=== PATIENT | male | born 1970 | race Caucasian/White ===

== ENCOUNTER 2019-11-27 13:15 | Day surgery (SDC) | payer BC, OTHER ==
[2019-11-22 14:42] LABS: BASOPHILS % (AUTO) 0.5 % (0-1); EOSINOPHILS # (AUTO) 0.6 X10'3 (0-0.9); EOSINOPHILS % (AUTO) 6.9 % (0-6); HEMATOCRIT 42.5 % (42.0-52.0); HEMOGLOBIN 14.6 g/dl (14.0-17.9); LYMPHOCYTES # (AUTO) 2.8 X10'3 (1.1-4.8); LYMPHOCYTES % (AUTO) 33.7 % (21-51); MEAN CORPUSCULAR HEMOGLOBIN 30.8 PG (27.0-31.0); MEAN CORPUSCULAR HGB CONC 34.4 g/dL (33.0-36.5); MEAN CORPUSCULAR VOLUME 89.6 FL (78-98); MEAN PLATELET VOLUME 7.2 FL (7.4-10.4); MONOCYTES # (AUTO) 0.6 X10'3 (0-0.9); MONOCYTES % (AUTO) 7.1 % (2-12); NEUTROPHILS # (AUTO) 4.3 X10'3 (1.8-7.7); NEUTROPHILS % (AUTO) 51.8 % (42-75); PLATELET COUNT 254 X10'3 (140-440); RED BLOOD COUNT 4.74 X10'6 (4.70-6.10); RED CELL DISTRIBUTION WIDTH 13.7 % (11.5-14.5); WHITE BLOOD COUNT 8.4 X10'3 (4.5-11.0)
[2019-11-22 14:50] LABS: PARTIAL THROMBOPLASTIN TIME 26 SECONDS (22-32)
[2019-11-22 14:52] LABS: ALBUMIN 3.9 G/DL (3.4-5.0); ANION GAP 7 (8-16); BLOOD UREA NITROGEN 12 MG/DL (7-18); BUN/CREATININE RATIO 12.8 (5.4-32.0); CALCIUM 9.4 MG/DL (8.5-10.1); CHLORIDE 104 MMOL/L (99-107); CREATININE 0.94 MG/DL (0.60-1.10); GLUCOSE 96 MG/DL (70-104); POTASSIUM 4.3 MMOL/L (3.5-5.1); SODIUM 141 MMOL/L (135-145); TOTAL CARBON DIOXIDE 30.5 MMOL/L (24-32); eGFR 85 ML/MIN
[2019-11-27] VITALS (7 sets, daily range): BP systolic 118–137; BP diastolic 61–72
[~2019-11-27] VITALS: Ht 190.5 cm; Wt 139.2 kg
[2019-11-27] MEDS ORDERED: ENOX40SY7 SUBCUT (14:08)
[2019-11-27] MEDS ORDERED: APIX5TAB3 PO (14:08)
[2019-11-27] MEDS ORDERED: DOLU50TA PO (14:08)
[2019-11-27] MEDS ORDERED: VARE1TAB22 PO (14:08)
[2019-11-27] MEDS ORDERED: LISI10TA4 PO (14:08)
[2019-11-27] MEDS ORDERED: EMTR1TAB18 PO (14:08)
[2019-11-27] MEDS ORDERED: CLIN-90 PO (14:08)
[2019-11-27] MEDS ORDERED: LORazepam 0.5 MG tablet PO PRN (15:00)
[2019-11-27] MEDS ORDERED: normal saline 1,000 ML IV SCH (15:00)
[2019-11-27] MEDS ORDERED: diphenhydrAMINE 25mg capsule PO PRN (15:00)
[2019-11-27] MEDS ORDERED: midazolam 2 mg/2 ml injection ONE ×2 (16:42→17:06)
[2019-11-27] MEDS ORDERED: fentaNYL/PF 50MCG/1 ML 2ML syringe ONE (16:43)
[2019-11-27] MEDS ORDERED: LIDOcaine 1% (10mg/ml)w/preservative injection 20ml MDV ONE (16:43)
[2019-11-27] MEDS ORDERED: iohexol 350MG/ML 100ml bottle IV ONE (16:43)
== END 2019-11-27 19:50 | disposition home or self-care (01) ==
LOC: SSTAY O 13:15
PROVIDERS: ATTEND Internal Medicine Interventional Cardiology
DX: R07.2 Precordial pain (principal); I25.10 Atherosclerotic heart disease of native coronary artery without angina pectoris; G47.33 Obstructive sleep apnea (adult) (pediatric); I10 Essential (primary) hypertension; F17.210 Nicotine dependence, cigarettes, uncomplicated; Z79.01 Long term (current) use of anticoagulants; Z86.73 Personal history of transient ischemic attack (TIA), and cerebral infarction without residual deficits; Z79.899 Other long term (current) drug therapy
CPT/HCPCS: 36415; 80048; 85025; 85610; 85730; 93005; 93458; 99152; 99153; C1769; J1644; J2001; J2250; J3010; J7030; Q0163; Q9967; A4620; A6258

== ENCOUNTER 2020-03-31 19:37 | Emergency (ER) | payer BC, OTHER ==
[~2020-03-31] VITALS: Ht 190.5 cm; Wt 130.8 kg
[~2020-03-31 19:37] MED LIST: APIX5TAB3 PO; CLIN-97 PO; DOLU50TA PO; EMTR1TAB18 PO; ENOX40SY7 SUBCUT; LISI10TA4 PO; VARE1TAB22 PO
[2020-03-31] MEDS ORDERED: clindamycin 150mg capsule PO ONE (20:00)
[2020-03-31] MEDS ORDERED: cephalexin 250mg capsule PO ONE (20:00)
[2020-03-31] MEDS ORDERED: ondansetron 4mg rapidly disintigrating tab PO ONE (20:00)
[2020-03-31] MEDS ORDERED: HYDROcodone/acetaminophen 5mg/325mg tablet PO ONE (20:00)
[2020-03-31] MEDS ORDERED: acetaminophen 325mg tablet PO ONE (20:00)
[2020-03-31] MEDS ORDERED: CLIN150C8 PO (20:01)
[2020-03-31] MEDS ORDERED: CEPH250T PO (20:01)
[2020-03-31] MEDS ORDERED: HYDR-3965 PO (20:08)
[2020-03-31] MEDS ORDERED: ONDA4TAB6 PO (20:08)
[2020-03-31] MEDS ORDERED: TETanus/Pertussis (Acell)/Diphther VAC/PF (Tdap-Adult) 0.5ml syringe IMVAC ONE (20:10)
[2020-03-31 20:32] VITALS: BP 149/90
== END 2020-03-31 20:34 | disposition home or self-care (01) ==
LOC: ER 19:38
DX: L03.116 Cellulitis of left lower limb (principal); I10 Essential (primary) hypertension; E11.9 Type 2 diabetes mellitus without complications; Z86.718 Personal history of other venous thrombosis and embolism; Z79.01 Long term (current) use of anticoagulants; Z79.899 Other long term (current) drug therapy
CPT/HCPCS: 90471; 90715; 99284

== ENCOUNTER 2020-04-08 10:53 | Emergency (ER) | payer BC, OTHER ==
[~2020-04-08] VITALS: Ht 190.5 cm; Wt 129.4 kg
[~2020-04-08 10:53] MED LIST changes: +CEPH250T PO; +CLIN150C8 PO; +HYDR-3965 PO; +ONDA4TAB6 PO
[2020-04-08 11:48] LABS: BASOPHILS # (AUTO) 0.1 X10'3 (0-0.2); BASOPHILS % (AUTO) 0.8 % (0-1); EOSINOPHILS # (AUTO) 0.6 X10'3 (0-0.9); EOSINOPHILS % (AUTO) 6.3 % (0-6); HEMATOCRIT 43.5 % (42.0-52.0); HEMOGLOBIN 14.7 g/dl (14.0-17.9); LYMPHOCYTES # (AUTO) 2.9 X10'3 (1.1-4.8); LYMPHOCYTES % (AUTO) 29.3 % (21-51); MEAN CORPUSCULAR HEMOGLOBIN 31.3 PG (27.0-31.0); MEAN CORPUSCULAR HGB CONC 33.8 g/dL (33.0-36.5); MEAN CORPUSCULAR VOLUME 92.5 FL (78-98); MEAN PLATELET VOLUME 7.1 FL (7.4-10.4); MONOCYTES # (AUTO) 0.6 X10'3 (0-0.9); MONOCYTES % (AUTO) 5.6 % (2-12); NEUTROPHILS # (AUTO) 5.8 X10'3 (1.8-7.7); PLATELET COUNT 330 X10'3 (140-440); RED BLOOD COUNT 4.71 X10'6 (4.70-6.10); RED CELL DISTRIBUTION WIDTH 13.9 % (11.5-14.5)
--- NOTE | 2020-04-08 11:52 | NUR ---
vascular in with pt
[2020-04-08 12:03] LABS: D-DIMER 0.54 MG/L FEU (0-0.50)
[2020-04-08 12:06] LABS: ALANINE AMINOTRANSFERASE 31 U/L (12-78); ALBUMIN 3.8 G/DL (3.4-5.0); ALBUMIN/GLOBULIN RATIO 0.9 (1.1-1.5); ALKALINE PHOSPHATASE 42 IU/L (46-116); ANION GAP 9 (8-16); ASPARTATE AMINO TRANSFERASE 21 U/L (10-37); BILIRUBIN,TOTAL 0.5 MG/DL (0.1-1.0); BLOOD UREA NITROGEN 12 MG/DL (7-18); BUN/CREATININE RATIO 10.4 (5.4-32.0); CALCIUM 9.7 MG/DL (8.5-10.1); CHLORIDE 105 MMOL/L (99-107); CREATININE 1.15 MG/DL (0.60-1.10); GLUCOSE 128 MG/DL (70-104); POTASSIUM 4.1 MMOL/L (3.5-5.1); SODIUM 143 MMOL/L (135-145); TOTAL PROTEIN 7.9 G/DL (6.4-8.2); eGFR 67 ML/MIN
[2020-04-08] MEDS ORDERED: normal saline 1000ML IV soln IVB ONE (12:15)
[2020-04-08] MEDS ORDERED: iohexol 350MG/ML 100ml bottle IV ONE (12:18)
[2020-04-08] MEDS ORDERED: MESSAGE TO NURSING PO NR (12:35)
[2020-04-08 13:06] VITALS: BP 114/64
[2020-04-08] MEDS ORDERED: DOXY100C76 PO (13:30)
[2020-04-08] MEDS ORDERED: HYDR-4383 PO (13:34)
== END 2020-04-08 14:00 | disposition home or self-care (01) ==
LOC: ER 10:53
DX: L03.116 Cellulitis of left lower limb (principal); R06.02 Shortness of breath; M79.89 Other specified soft tissue disorders; M79.662 Pain in left lower leg; I10 Essential (primary) hypertension; E11.9 Type 2 diabetes mellitus without complications; Z86.718 Personal history of other venous thrombosis and embolism; Z79.2 Long term (current) use of antibiotics; Z79.899 Other long term (current) drug therapy
CPT/HCPCS: 36415; 71045; 71270; 80053; 83880; 84484; 85025; 85379; 93005; 93970; 99285; J7030; Q9967

== ENCOUNTER 2020-06-29 09:43 | Outpatient (CLI) | payer BC, OTHER ==
[~2020-06-29 09:43] MED LIST changes: -CEPH250T PO; -HYDR-3965 PO; +HYDR-4383 PO
== END 2020-06-29 11:03 | disposition home or self-care (01) ==
LOC: WOUND CARE 09:43 → EDSTATUS 10:00 → WOUND CARE 11:03
PROVIDERS: ATTEND Nurse Practitioner
DX: S81.802A Unspecified open wound, left lower leg, initial encounter (principal); E11.622 Type 2 diabetes mellitus with other skin ulcer; L97.522 Non-pressure chronic ulcer of other part of left foot with fat layer exposed; E11.65 Type 2 diabetes mellitus with hyperglycemia; I10 Essential (primary) hypertension; J43.9 Emphysema, unspecified; Z79.01 Long term (current) use of anticoagulants; Z86.718 Personal history of other venous thrombosis and embolism; Z79.899 Other long term (current) drug therapy; Z79.2 Long term (current) use of antibiotics; Z87.891 Personal history of nicotine dependence; X58.XXXA Exposure to other specified factors, initial encounter; Y93.89 Activity, other specified; Y92.89 Other specified places as the place of occurrence of the external cause; Y99.8 Other external cause status
CPT/HCPCS: 87070; 87075; 87077; 87102; 87186; G0463

== ENCOUNTER 2020-07-08 08:10 | Day surgery (SDC) | payer BC, OTHER ==
[2020-07-08] MEDS ORDERED: LIDOcaine 2% 5ml jelly ONE (08:30)
== END 2020-07-08 09:15 | disposition home or self-care (01) ==
LOC: WOUND CARE 08:10
PROVIDERS: ATTEND Nurse Practitioner
DX: S81.802A Unspecified open wound, left lower leg, initial encounter (principal); E11.622 Type 2 diabetes mellitus with other skin ulcer; L97.222 Non-pressure chronic ulcer of left calf with fat layer exposed; E11.65 Type 2 diabetes mellitus with hyperglycemia; I10 Essential (primary) hypertension; J43.9 Emphysema, unspecified; Z79.01 Long term (current) use of anticoagulants; Z86.718 Personal history of other venous thrombosis and embolism; Z79.899 Other long term (current) drug therapy; Z79.2 Long term (current) use of antibiotics; Z87.891 Personal history of nicotine dependence; X58.XXXA Exposure to other specified factors, initial encounter; Y93.89 Activity, other specified; Y92.89 Other specified places as the place of occurrence of the external cause; Y99.8 Other external cause status
CPT/HCPCS: 36416; 82948; 97597

== ENCOUNTER 2020-07-15 08:00 | Day surgery (SDC) | payer BC, OTHER ==
[2020-07-15] MEDS ORDERED: LIDOcaine 2% 5ml jelly ONE (08:39)
== END 2020-07-15 09:00 | disposition home or self-care (01) ==
LOC: WOUND CARE 08:00
PROVIDERS: ATTEND Nurse Practitioner
DX: S81.802D Unspecified open wound, left lower leg, subsequent encounter (principal); E11.622 Type 2 diabetes mellitus with other skin ulcer; L97.222 Non-pressure chronic ulcer of left calf with fat layer exposed; E11.65 Type 2 diabetes mellitus with hyperglycemia; E11.43 Type 2 diabetes mellitus with diabetic autonomic (poly)neuropathy; I10 Essential (primary) hypertension; J43.9 Emphysema, unspecified; Z79.01 Long term (current) use of anticoagulants; Z86.718 Personal history of other venous thrombosis and embolism; Z79.899 Other long term (current) drug therapy; Z79.2 Long term (current) use of antibiotics; Z87.891 Personal history of nicotine dependence; X58.XXXD Exposure to other specified factors, subsequent encounter
CPT/HCPCS: 97597

== ENCOUNTER 2020-07-31 08:10 | Day surgery (SDC) | payer BC, OTHER ==
[2020-07-31] MEDS ORDERED: LIDOcaine 2% 5ml jelly ONE (08:37)
== END 2020-07-31 09:12 | disposition home or self-care (01) ==
LOC: WOUND CARE 08:10
PROVIDERS: ATTEND Nurse Practitioner
DX: S81.802D Unspecified open wound, left lower leg, subsequent encounter (principal); E11.622 Type 2 diabetes mellitus with other skin ulcer; L97.222 Non-pressure chronic ulcer of left calf with fat layer exposed; E11.65 Type 2 diabetes mellitus with hyperglycemia; I10 Essential (primary) hypertension; J43.9 Emphysema, unspecified; E11.43 Type 2 diabetes mellitus with diabetic autonomic (poly)neuropathy; Z79.01 Long term (current) use of anticoagulants; Z86.718 Personal history of other venous thrombosis and embolism; Z79.899 Other long term (current) drug therapy; Z79.2 Long term (current) use of antibiotics; Z87.891 Personal history of nicotine dependence; X58.XXXD Exposure to other specified factors, subsequent encounter
CPT/HCPCS: 97597

== ENCOUNTER 2020-08-07 08:00 | Day surgery (SDC) | payer BC, OTHER ==
[2020-08-07] MEDS ORDERED: LIDOcaine 2% 5ml jelly ONE (08:21)
== END 2020-08-07 08:50 | disposition home or self-care (01) ==
LOC: WOUND CARE 08:00
PROVIDERS: ATTEND Nurse Practitioner
DX: S81.802D Unspecified open wound, left lower leg, subsequent encounter (principal); E11.622 Type 2 diabetes mellitus with other skin ulcer; L97.222 Non-pressure chronic ulcer of left calf with fat layer exposed; E11.65 Type 2 diabetes mellitus with hyperglycemia; I10 Essential (primary) hypertension; J43.9 Emphysema, unspecified; E11.43 Type 2 diabetes mellitus with diabetic autonomic (poly)neuropathy; Z79.01 Long term (current) use of anticoagulants; Z86.718 Personal history of other venous thrombosis and embolism; Z79.899 Other long term (current) drug therapy; Z79.2 Long term (current) use of antibiotics; Z87.891 Personal history of nicotine dependence; X58.XXXD Exposure to other specified factors, subsequent encounter
CPT/HCPCS: 97597

== ENCOUNTER 2021-10-02 01:41 | Observation (INO) | payer BC, OTHER ==
[~2021-10-02] VITALS: Ht 190.5 cm; Wt 125.5 kg
[2021-10-02] VITALS (13 sets, daily range): BP systolic 112–144; BP diastolic 58–75
[~2021-10-02 01:41] MED LIST changes: +LISI10TA27 PO; -LISI10TA4 PO
[2021-10-02] MEDS ORDERED: propofol 10mg/ml 20ml vial IV ONE (04:00)
[2021-10-02] MEDS ORDERED: ondansetron/PF 4mg/2ml inj IV ONE ×2 (04:15→07:00)
[2021-10-02] MEDS ORDERED: propofol 1000mg/100ml bottle 100 ML IV ONE (04:46)
[2021-10-02] MEDS ORDERED: morphine 4 MG/ML inj SYRINge IV ONE (07:00)
[2021-10-02 07:46] LABS: BASOPHILS # (AUTO) 0.1 X10'3 (0-0.2); BASOPHILS % (AUTO) 0.8 % (0-1); EOSINOPHILS # (AUTO) 0.4 X10'3 (0-0.9); EOSINOPHILS % (AUTO) 5.8 % (0-6); HEMATOCRIT 38.5 % (42.0-52.0); LYMPHOCYTES % (AUTO) 27.5 % (21-51); MEAN CORPUSCULAR HGB CONC 33.8 g/dL (33.0-36.5); MEAN CORPUSCULAR VOLUME 91.5 FL (78-98); MEAN PLATELET VOLUME 7.9 FL (7.4-10.4); MONOCYTES # (AUTO) 0.6 X10'3 (0-0.9); MONOCYTES % (AUTO) 8.6 % (2-12); NEUTROPHILS # (AUTO) 4.2 X10'3 (1.8-7.7); NEUTROPHILS % (AUTO) 57.3 % (42-75); PLATELET COUNT 241 X10'3 (140-440); RED BLOOD COUNT 4.21 X10'6 (4.70-6.10); RED CELL DISTRIBUTION WIDTH 13.2 % (11.5-14.5); WHITE BLOOD COUNT 7.2 X10'3 (4.5-11.0)
[2021-10-02 07:58] LABS: ANION GAP 12 (8-16); BLOOD UREA NITROGEN 11 MG/DL (7-18); BUN/CREATININE RATIO 9.6 (5.4-32.0); CALCIUM 8.6 MG/DL (8.5-10.1); CHLORIDE 110 MMOL/L (99-107); CREATININE 1.15 MG/DL (0.60-1.10); GLUCOSE 99 MG/DL (70-104); POTASSIUM 3.9 MMOL/L (3.5-5.1); SODIUM 145 MMOL/L (135-145); TOTAL CARBON DIOXIDE 23.5 MMOL/L (24-32); eGFR 67 ML/MIN
[2021-10-02 08:01] LABS: PARTIAL THROMBOPLASTIN TIME 28 SECONDS (22-32)
[2021-10-02] MEDS ORDERED: potassium Cl 20 mEq SR tablet PO PRN ×2 (09:45)
[2021-10-02] MEDS ORDERED: normal saline 1000ml 1,000 ML IV SCH (09:45)
[2021-10-02] MEDS ORDERED: potassium CL 10mEq/100ml bag 100 ML IV PRN (09:45)
[2021-10-02] MEDS ORDERED: magnesium Cl slow-release 64mg tablet PO PRN (09:45)
[2021-10-02] MEDS ORDERED: ondansetron/PF 4mg/2ml inj IV PRN ×2 (09:45→10:55)
[2021-10-02] MEDS ORDERED: acetaminophen 325mg tablet PO PRN ×2 (09:45)
[2021-10-02] MEDS ORDERED: magnesium 4gm in 100ml NS 100 ML IV PRN (09:45)
[2021-10-02] MEDS ORDERED: magnesium 2GM in 50ml NS 50 ML IV PRN (09:45)
[2021-10-02] MEDS ORDERED: morphine 4 MG/ML inj SYRINge IV PRN (10:55)
[2021-10-02] MEDS ORDERED: morphine 2 MG/ML inj. syringe IV PRN (10:55)
[2021-10-02] MEDS ORDERED: hydrALAZINE 20mg/ml inj. IV PRN (10:55)
[2021-10-02] MEDS ORDERED: ringers solution, lacted 1,000 ML IV SCH (10:55)
[2021-10-02] MEDS ORDERED: fentaNYL/PF 50MCG/1 ML 2ML syringe IV PRN ×2 (10:55)
[2021-10-02] MEDS ORDERED: ringers solution, lacted 1,000 ML IV ONE (10:55)
[2021-10-02] MEDS ORDERED: labetalol 20mg/4ml (5mg/ml) syringe IV PRN (10:55)
[2021-10-02 11:30] LABS: MAGNESIUM 1.9 MG/DL (1.5-2.4); POTASSIUM 4.2 MMOL/L (3.5-5.1)
[2021-10-02] MEDS ORDERED: MIDAZolam 1 MG/ML 5ML VIAL ONE (11:52)
[2021-10-02] MEDS ORDERED: fentaNYL/PF 50MCG/1 ML 2ML syringe ONE (11:52)
[2021-10-02] MEDS ORDERED: LIDOcaine 2% (20mg/ml) 5ml vial ONE (11:56)
[2021-10-02] MEDS ORDERED: succinylcholine 20mg/ml inj IV ONE (11:56)
[2021-10-02] MEDS ORDERED: propofol inj 20 ML IV ONE (11:56)
[2021-10-02] MEDS ORDERED: dexamethasone sod phosphate 4mg/ml inj. ONE (11:57)
[2021-10-02] MEDS ORDERED: ondansetron/PF 4mg/2ml inj ONE (11:57)
[2021-10-02] MEDS ORDERED: desflurane 240ml liquid inh. IH ONE (12:35)
[2021-10-02] MEDS ORDERED: HYDROcodone/acetaminophen 10/325mg tab PO PRN (13:20)
--- NOTE | 2021-10-02 13:22 | NUR ---
Received from OR via [facility], accompanied by Anesthesiologist DR JOHNSON and report given by Anesthesiologist. PT DROWSY, DENIES PAIN. PT W/ABD PAD IN MESH UNDER LEDESMA, NO DRAINAGE NOTED. Addendum: 10/02/21 at 1344 by Naima Jansen RN Amended: Links added.
[2021-10-02] MEDS ORDERED: CHOL10008 PO (14:13)
[2021-10-02] MEDS ORDERED: AMLO2.5T2 PO (14:13)
[2021-10-02] MEDS ORDERED: METF-900 PO (14:13)
[2021-10-02] MEDS ORDERED: FENO48TA10 PO (14:13)
[2021-10-02] MEDS ORDERED: LISI40TA13 PO (14:13)
[2021-10-02] MEDS ORDERED: NALT50TA PO (14:17)
[2021-10-02] MEDS ORDERED: LATUDA PO (14:17)
[2021-10-02] MEDS ORDERED: DOLU1TAB2 PO (14:17)
[2021-10-02] MEDS ORDERED: OMEP-50 PO (14:17)
--- NOTE | 2021-10-02 14:32 | NUR ---
Report called to receiving nurse. Transferred via GURNEY, 2 BAGS OF Belongings, CELL PHONE W/HEADPHONES, DENTURES PLACED IN PTS MOUTH ALL SENT W/PT TO ROOM 344B, PT ABLE TO SAFELY AMBULATE FROM [place] TO BED, NURSE AT BEDSIDE TO RECEIVE PT. Special Issues communicated to receiving nurse. YES. Addendum: 10/02/21 at 1446 by Naima Jansen RN Amended: Links added.
--- NOTE | 2021-10-02 14:45 | NUR ---
received report from PETEY Mcnamara. Patient arrived to floor. Ambulated to bed. VSS. no complaints.
--- NOTE | 2021-10-02 17:24 | NUR ---
Patient stable and appropriate for discharge home. IV removed, all belongings taken from room. No new medications ordered. All discharge instructions and education given and reviewed with patient, all questions answered.
[2021-10-02] MEDS ORDERED: apixaban 5mg tablet PO SCH (20:00)
[2021-10-02] MEDS ORDERED: metFORMIN 500mg tablet PO SCH (20:00)
[2021-10-02] MEDS ORDERED: K and/or MAG REPLACEMENT MC SCH (20:00)
[2021-10-02] MEDS ORDERED: lurasidone 20mg tablet PO SCH (21:00)
[2021-10-02] MEDS ORDERED: naltrexone 50mg tablet PO SCH (21:00)
[2021-10-03] MEDS ORDERED: famotidine 20mg tablet PO ONE (06:00)
[2021-10-03] MEDS ORDERED: DOLUTEGRAVIR SODIUM PO SCH (08:00)
[2021-10-03] MEDS ORDERED: LAMIVUDINE PO SCH (08:00)
[2021-10-03] MEDS ORDERED: pantoprazole 40mg Tablet.DR PO SCH (08:00)
[2021-10-03] MEDS ORDERED: amLODIPine 5mg tablet PO SCH (08:00)
[2021-10-03] MEDS ORDERED: lisinopril 20mg tablet PO SCH (08:00)
[2021-10-03] MEDS ORDERED: cholecalciferol (vitamin D3) 1,000 unit (25mcg) tablet PO SCH (08:00)
[2021-10-03] MEDS ORDERED: fenofibrate 48mg tablet PO SCH (08:00)
== END 2021-10-02 17:18 | disposition home or self-care (01) ==
LOC: ER 01:42 → ED HOLD 09:48 → SUR 3N 14:30
PROVIDERS: ADMIT Internal Medicine; ATTEND Internal Medicine
DX: T18.5XXA Foreign body in anus and rectum, initial encounter (principal); Z20.822 Contact with and (suspected) exposure to COVID-19; I10 Essential (primary) hypertension; E11.9 Type 2 diabetes mellitus without complications; Z21 Asymptomatic human immunodeficiency virus [HIV] infection status; Z86.718 Personal history of other venous thrombosis and embolism; Z79.01 Long term (current) use of anticoagulants; Z79.899 Other long term (current) drug therapy
CPT/HCPCS: 36415; 45332; 74018; 76000; 80048; 82948; 83735; 84132; 85025; 85610; 85730; 87635; 93005; 94799; 96374; 96375; 99285; C9803; G0378; J0330; J1100; J2250; J2270; J2405; J2704; J3010; J3490; J7120; 94760; A4618; A6253; A7000

== ENCOUNTER 2022-09-22 14:40 | Emergency (ER) | payer MEDICARE, MEDICAID ==
[~2022-09-22] VITALS: Ht 190.5 cm; Wt 115.0 kg
[~2022-09-22 14:40] MED LIST changes: +AMLO2.5T2 PO; +CHOL10008 PO; -CLIN-97 PO; -CLIN150C8 PO; +DOLU1TAB2 PO; -DOLU50TA PO; -EMTR1TAB18 PO; -ENOX40SY7 SUBCUT; +FENO48TA10 PO; -HYDR-4383 PO; +LATUDA PO; -LISI10TA27 PO; +LISI40TA13 PO; +METF-900 PO; +NALT50TA PO; +OMEP20CA16 PO; -ONDA4TAB6 PO; -VARE1TAB22 PO
[2022-09-22] MEDS ORDERED: clindamycin 600mg/D5W 50ml 50 ML IV ONE (15:25)
[2022-09-22] MEDS ORDERED: CLIN300C54 PO (17:15)
[2022-09-22] MEDS ORDERED: clindamycin 150mg capsule PO ONE (17:15)
[2022-09-22 17:45] VITALS: BP 149/89
== END 2022-09-22 17:50 | disposition home or self-care (01) ==
LOC: ER 14:40
DX: L03.116 Cellulitis of left lower limb (principal); E11.9 Type 2 diabetes mellitus without complications; I10 Essential (primary) hypertension; Z79.899 Other long term (current) drug therapy; Z79.1 Long term (current) use of non-steroidal anti-inflammatories (NSAID); Z79.2 Long term (current) use of antibiotics
CPT/HCPCS: 96365; 99284; J3490

== ENCOUNTER 2023-02-24 11:30 | Outpatient (CLI) | payer MEDICARE, MEDICAID ==
[~2023-02-24] VITALS: Ht 190.5 cm; Wt 111.1 kg
[2023-02-24] MEDS ORDERED: TACR30OI4 TOP (12:45)
[2023-02-24] MEDS ORDERED: MOME45CR3 TOP (12:45)
[2023-02-24 13:11] LABS: BASOPHILS % (AUTO) 0.7 % (0-1); EOSINOPHILS # (AUTO) 0.4 X10'3 (0-0.9); EOSINOPHILS % (AUTO) 7.6 % (0-6); LYMPHOCYTES # (AUTO) 2.2 X10'3 (1.1-4.8); LYMPHOCYTES % (AUTO) 37.4 % (21-51); MEAN CORPUSCULAR HEMOGLOBIN 30.9 PG (27.0-31.0); MEAN CORPUSCULAR HGB CONC 33.5 g/dL (33.0-36.5); MEAN CORPUSCULAR VOLUME 92.5 FL (78-98); MEAN PLATELET VOLUME 7.6 FL (7.4-10.4); MONOCYTES # (AUTO) 0.5 X10'3 (0-0.9); MONOCYTES % (AUTO) 8.2 % (2-12); NEUTROPHILS # (AUTO) 2.7 X10'3 (1.8-7.7); NEUTROPHILS % (AUTO) 46.1 % (42-75); PRE OP HEMATOCRIT 42.2 % (42.0-52.0); PRE OP HEMOGLOBIN 14.1 g/dL (14.0-17.9); PRE OP PLATELET COUNT 208 X10'3 (140-440); RED BLOOD COUNT 4.56 X10'6 (4.70-6.10); RED CELL DISTRIBUTION WIDTH 13.6 % (11.5-14.5)
[2023-02-24 13:19] LABS: ALBUMIN 4.2 G/DL (3.4-5.0); ALBUMIN/GLOBULIN RATIO 1.4 (1.1-1.5); ALKALINE PHOSPHATASE 37 IU/L (46-116); BLOOD UREA NITROGEN 11 MG/DL (7-18); BUN/CREATININE RATIO 12.4 (10.0-20.0); CALCIUM 9.4 MG/DL (8.5-10.1); CHLORIDE 105 MMOL/L (99-107); CREATININE 0.89 MG/DL (0.60-1.10); PRE OP ALT 24 U/L (30-65); PRE OP ANION GAP 8 (8-16); PRE OP AST 23 U/L (10-37); PRE OP BILIRUB, TOTAL 0.8 MG/DL (0.0-1.0); PRE OP GLUCOSE 88 MG/DL (70-104); PRE OP SODIUM 141 MMOL/L (135-145); TOTAL CARBON DIOXIDE 28.4 MMOL/L (24-32); TOTAL PROTEIN 7.2 G/DL (6.4-8.2); eGFR 89 ML/MIN
[2023-02-24 13:29] LABS: PRE OP INR 1.1 INR; PRE OP PROTIME 11.4 SECONDS (9.0-12.0)
[2023-03-06] MEDS ORDERED: ringers solution, lacted 1,000 ML IV SCH (05:00)
[2023-03-06] MEDS ORDERED: cefazolin 2gm/D5W 100mL 100 ML IV ONE (05:30)
[2023-03-06] MEDS ORDERED: famotidine 20mg tablet PO ONE (05:30)
== END 2023-02-24 23:59 | disposition home or self-care (01) ==
LOC: LAB 11:30 → OR 12:48 → LAB 23:59 → EDSTATUS 03-06 08:45
PROVIDERS: ATTEND Orthopaedic Surgery
DX: Z01.818 Encounter for other preprocedural examination (principal); S43.432A Superior glenoid labrum lesion of left shoulder, initial encounter; S46.212A Strain of muscle, fascia and tendon of other parts of biceps, left arm, initial encounter; M25.512 Pain in left shoulder; R00.1 Bradycardia, unspecified; I26.99 Other pulmonary embolism without acute cor pulmonale; M19.012 Primary osteoarthritis, left shoulder; M75.42 Impingement syndrome of left shoulder; I70.0 Atherosclerosis of aorta; M47.814 Spondylosis without myelopathy or radiculopathy, thoracic region; I82.409 Acute embolism and thrombosis of unspecified deep veins of unspecified lower extremity; J44.9 Chronic obstructive pulmonary disease, unspecified; X58.XXXA Exposure to other specified factors, initial encounter; Y93.89 Activity, other specified; Y92.89 Other specified places as the place of occurrence of the external cause; Y99.8 Other external cause status
CPT/HCPCS: 36415; 71046; 80053; 85025; 85610; 85730; 93005; J0690; J7120

== ENCOUNTER 2023-04-25 05:20 | Day surgery (SDC) | payer MEDICARE, MEDICAID ==
[2023-04-19 10:57] LABS: BASOPHILS # (AUTO) 0.1 X10'3 (0-0.2); BASOPHILS % (AUTO) 1.1 % (0-1); EOSINOPHILS # (AUTO) 0.5 X10'3 (0-0.9); EOSINOPHILS % (AUTO) 8.4 % (0-6); LYMPHOCYTES # (AUTO) 2.4 X10'3 (1.1-4.8); LYMPHOCYTES % (AUTO) 38.6 % (21-51); MEAN CORPUSCULAR HEMOGLOBIN 31.1 PG (27.0-31.0); MEAN CORPUSCULAR HGB CONC 33.6 g/dL (33.0-36.5); MEAN CORPUSCULAR VOLUME 92.7 FL (78-98); MEAN PLATELET VOLUME 7.5 FL (7.4-10.4); MONOCYTES # (AUTO) 0.5 X10'3 (0-0.9); MONOCYTES % (AUTO) 8.4 % (2-12); NEUTROPHILS # (AUTO) 2.7 X10'3 (1.8-7.7); NEUTROPHILS % (AUTO) 43.5 % (42-75); PRE OP HEMATOCRIT 42.1 % (42.0-52.0); PRE OP HEMOGLOBIN 14.1 g/dL (14.0-17.9); PRE OP PLATELET COUNT 212 X10'3 (140-440); RED BLOOD COUNT 4.55 X10'6 (4.70-6.10); RED CELL DISTRIBUTION WIDTH 13.4 % (11.5-14.5)
[2023-04-19 11:11] LABS: ALBUMIN 4.2 G/DL (3.4-5.0); ALBUMIN/GLOBULIN RATIO 1.4 (1.1-1.5); ALKALINE PHOSPHATASE 39 IU/L (46-116); BLOOD UREA NITROGEN 9 MG/DL (7-18); BUN/CREATININE RATIO 8.7 (10.0-20.0); CALCIUM 9.1 MG/DL (8.5-10.1); CHLORIDE 106 MMOL/L (99-107); CREATININE 1.04 MG/DL (0.60-1.10); PRE OP ALT 28 U/L (30-65); PRE OP ANION GAP 8 (8-16); PRE OP AST 22 U/L (10-37); PRE OP BILIRUB, TOTAL 0.8 MG/DL (0.0-1.0); PRE OP GLUCOSE 98 MG/DL (70-104); PRE OP POTASSIUM 4.1 MMOL/L (3.4-5.1); PRE OP SODIUM 142 MMOL/L (135-145); TOTAL PROTEIN 7.1 G/DL (6.4-8.2); eGFR 74 ML/MIN
[~2023-04-25] VITALS: Ht 190.5 cm; Wt 112.0 kg
[2023-04-25] VITALS (7 sets, daily range): BP systolic 102–129; BP diastolic 60–77
[~2023-04-25 05:20] MED LIST changes: -AMLO2.5T2 PO; -CHOL10008 PO; -FENO48TA10 PO; -LATUDA PO; -LISI40TA13 PO; -METF-900 PO; -NALT50TA PO; -OMEP20CA16 PO; +ringers solution, lacted 1,000 ML IV SCH
[2023-04-25] MEDS ORDERED: famotidine 20mg tablet PO ONE (05:30)
[2023-04-25] MEDS ORDERED: cefazolin 2gm/D5W 100mL 100 ML IV ONE (05:30)
[2023-04-25] MEDS ORDERED: LIDOcaine 1% (10mg/ml) 2ml vial ONE (05:58)
[2023-04-25] MEDS ORDERED: BUPIVAcaine/PF 2.5 mg/ml (0.25%) 30ml vial ONE (06:57)
[2023-04-25] MEDS ORDERED: cloNIDine hcl/PF 100mcg/ml inj ONE (07:00)
[2023-04-25] MEDS ORDERED: sevoflurane 250ml liquid IH ONE (07:37)
[2023-04-25] MEDS ORDERED: midazolam 1 mg/ML 2ml injection ONE (07:40)
[2023-04-25] MEDS ORDERED: propofol inj 20 ML IV ONE (07:40)
[2023-04-25] MEDS ORDERED: fentaNYL/PF 50MCG/1 ML 2ML syringe ONE (07:40)
[2023-04-25] MEDS ORDERED: ROPIVAcaine 0.5% (5mg/ml) 30ml vial ONE (07:48)
[2023-04-25] MEDS ORDERED: dexamethasone sod phosphate 4mg/ml inj. ONE (08:01)
[2023-04-25] MEDS ORDERED: proCHLORperazine 10 MG/2 ml inj IV PRN (08:45)
[2023-04-25] MEDS ORDERED: ondansetron/PF 4mg/2ml inj IV PRN (08:45)
[2023-04-25] MEDS ORDERED: ringers solution, lacted 1,000 ML IV SCH (08:45)
[2023-04-25] MEDS ORDERED: morphine 2 MG/ML inj. syringe IV PRN (08:45)
[2023-04-25] MEDS ORDERED: meperidine/PF 25mg/ml syringe IV PRN ×3 (08:45)
[2023-04-25] MEDS ORDERED: morphine 4 MG/ML inj SYRINge IV PRN (08:45)
[2023-04-25] MEDS ORDERED: ondansetron/PF 4mg/2ml inj ONE (08:59)
--- NOTE | 2023-04-25 09:18 | NUR ---
Received from OR via , accompanied by Anesthesiologist and report given by DR. HODGE. PATIENT A&OX4, DENIES PAIN, V/S WNL, SCD ON , PIV 20G R.HAND, DRESSING SHOULDER WRAP TO LEFT SIDE CDI W/ COLD POWDER PACK. CSM INTACT, WIGGLES FINGERS.
[2023-04-25] MEDS ORDERED: HYDROcodone/acetaminophen 10/325mg tab PO PRN (09:40)
--- NOTE | 2023-04-25 10:28 | NUR ---
PATIENT MEETS DISCHARGE CRITERIA TO HOME. DISCHARGE INSTRUCTIONS GIVEN, ALL BELONGINGS SENT WITH PATIENT AND DISCHARGED INTO THE CARE OF HIS SISTER, TYRON. IRISH PAIN. DR. NIELSEN SLING APPLIED TO LEFT SHOULDER. DRESSING CDI WITH [place]DSON SLEEVE AND POWDER PACK. EDUCATION PROVIDED ABOUT BLOCK RECEIVED.
== END 2023-04-25 10:28 | disposition home or self-care (01) ==
LOC: PAS 05:20
PROVIDERS: ATTEND Orthopaedic Surgery
DX: S43.432A Superior glenoid labrum lesion of left shoulder, initial encounter (principal); S46.112A Strain of muscle, fascia and tendon of long head of biceps, left arm, initial encounter; M75.42 Impingement syndrome of left shoulder; M75.52 Bursitis of left shoulder; J43.9 Emphysema, unspecified; E11.9 Type 2 diabetes mellitus without complications; I10 Essential (primary) hypertension; D68.51 Activated protein C resistance; G47.30 Sleep apnea, unspecified; G89.18 Other acute postprocedural pain; Z86.711 Personal history of pulmonary embolism; Z87.891 Personal history of nicotine dependence; Z98.890 Other specified postprocedural states; Z79.899 Other long term (current) drug therapy; X58.XXXA Exposure to other specified factors, initial encounter; Y93.89 Activity, other specified; Y92.89 Other specified places as the place of occurrence of the external cause; Y99.8 Other external cause status
CPT/HCPCS: 23430; 29823; 36415; 64415; 80053; 82948; 85025; C1713; J0690; J0735; J1100; J2250; J2405; J2704; J2795; J3010; J3490; J7120; Z7506; Z7508; Z7512; A4565; A4618; A6449; A7000

== ENCOUNTER 2023-07-31 09:17 | Outpatient (CLI) | payer MEDICARE, MEDICAID ==
[~2023-07-31 09:17] MED LIST changes: -ringers solution, lacted 1,000 ML IV SCH
== END 2023-07-31 23:59 | disposition home or self-care (01) ==
LOC: VAS 09:17
PROVIDERS: ATTEND Internal Medicine
DX: I82.409 Acute embolism and thrombosis of unspecified deep veins of unspecified lower extremity (principal); M79.605 Pain in left leg
CPT/HCPCS: 93971